=== PATIENT | female | born 1940 | race Caucasian/White ===

== ENCOUNTER 2020-06-20 18:23 | Emergency (ER) | payer MEDICARE, MEDICAID ==
[~2020-06-20] VITALS: Ht 165.1 cm; Wt 68.0 kg
--- NOTE | 2020-06-20 18:59 | NUR ---
patient resting in bed in NAD. head wrap not fully intact to cover R abrasion on head. this was removed by RN. no vision changes. family member at bedside. VS remain stable on RA. call berry in reach. safety maintained. + palpable pulses in all extremities. moving all extremities with strength against resistance. clear speech.
[2020-06-20 19:47] LABS: BASOPHILS % (AUTO) 1 % (0-1); EOSINOPHILS % (AUTO) 2 % (1-7); LYMPHOCYTES % (AUTO) 10 % (22-44); MEAN CORPUSCULAR HEMOGLOBIN 31.9 pg (27.0-34.8); MONOCYTES % (AUTO) 5 % (2-9); NEUTROPHILS % (AUTO) 82 % (42-75); PLATELET COUNT 283 x10^3/uL (130-400); RED BLOOD COUNT 4.36 x10^6/uL (3.82-5.3); RED CELL DISTRIBUTION WIDTH 13.5 % (9.6-15.2)
[2020-06-20 19:48] LABS: MD NO
--- NOTE | 2020-06-20 19:52 | NUR ---
Right facial abrasion cleansed with warm water and washcloth. dry gauze placed on abrasion and nonadhesive gauze placed on top of that with paper tape to keep in place. ice pack provided for swelling. call berry in reach. safety maintained.
[2020-06-20 19:55] LABS: ANION GAP 8 mmol/L (5-15); CALCIUM 9.1 mg/dL (8.5-10.1); CHLORIDE 106 mmol/L (98-107); CREATININE 0.99 mg/dL (0.55-1.02)
--- NOTE | 2020-06-20 19:57 | NUR ---
patient to CT
[2020-06-20 20:00] LABS: TROPONIN I < 0.015 ng/mL (0.000-0.045)
--- NOTE | 2020-06-20 20:59 | NUR ---
patient resting in bed in NAD. HOB readjusted per patient preference. family member remains at bedside. patient's VS remain stable on RA. patient requesting something for her KWAN. patient reports taking excedrin prior to arrival. call berry in reach
[2020-06-20] MEDS ORDERED: HYDROcodone/APAP 5/325 TABLET ONE (21:08)
--- NOTE | 2020-06-20 21:17 | NUR ---
steady gait to bathroom. norco administered for KWAN. patient states "oh, i love norco". patient and family member educated on restrictions with taking norco, no driving, drinking alcohol, high fall risk medication and it has acetaminophen so to take that into consideration for home pain management when discharged. both parties acknowledged teaching. call berry in reach. Vs remain stable. tech to bedside with brace
[2020-06-20] MEDS ORDERED: HYDROcodone/APAP 5/325 TABLET PO ONE (21:30)
--- NOTE | 2020-06-20 21:55 | NUR ---
discharge instructions reviewed with patient. prescription handed directly to patient. no further questions. steady gait to lobby with visitor at side. no IV placed during ER visit today. all personal belongings with patient on departure. right wrist splint in place
[2020-06-20 22:01] VITALS: BP 139/88
== END 2020-06-20 22:03 | disposition home or self-care (01) ==
LOC: ED 20:55
DX: S00.83XA Contusion of other part of head, initial encounter (principal); S60.211A Contusion of right wrist, initial encounter; S09.90XA Unspecified injury of head, initial encounter; R55 Syncope and collapse; R07.89 Other chest pain; M54.2 Cervicalgia; M19.90 Unspecified osteoarthritis, unspecified site; X58.XXXA Exposure to other specified factors, initial encounter; Y93.89 Activity, other specified; Y92.89 Other specified places as the place of occurrence of the external cause; Y99.8 Other external cause status
CPT/HCPCS: 29125; 36415; 70450; 71045; 72125; 80048; 82040; 84484; 85025; 93005; 99285